=== PATIENT | male | born 2000 | race African-American/Black ===

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

== ENCOUNTER 2021-02-06 10:51 | Emergency (ER) | payer OTHER, SELFPAY ==
[2021-02-06] MEDS ORDERED: Ibuprofen 800 MG TAB ONE (11:12)
== END 2021-02-06 12:00 | disposition home or self-care (01) ==
LOC: NAV ERS 10:51
DX: S13.9XXA Sprain of joints and ligaments of unspecified parts of neck, initial encounter (principal); S46.002A Unspecified injury of muscle(s) and tendon(s) of the rotator cuff of left shoulder, initial encounter; V47.5XXA Car driver injured in collision with fixed or stationary object in traffic accident, initial encounter
CPT/HCPCS: 72125

== ENCOUNTER 2023-10-23 17:39 | Emergency (ER) | payer SELFPAY | END 2023-10-23 18:28 | disposition home or self-care (01) | LOC: NAV ERS 17:39 | DX: K04.7 Periapical abscess without sinus (principal); K05.10 Chronic gingivitis, plaque induced | CPT/HCPCS: 99282 ==